=== PATIENT | female | born 1995 | race Caucasian/White ===

== ENCOUNTER 2020-06-21 13:20 | Inpatient (IN) | payer BC ==
[2020-06-21 15:10] VITALS: BMI 37.8
[2020-06-21] MEDS ORDERED: KETOROLAC TROMETHAMINE 30 MG/1 ML VIAL ONE (15:42)
[2020-06-21] MEDS ORDERED: morphine SULFATE/PF 0.5 MG/ML (2cc Syringe - QUVA) ONE (15:42)
--- NOTE | 2020-06-21 15:44 | HP ---
Past Medical History - Primary Care Physician PCP:: Monica Gunter - Admission Chief Complaint: 24 yo @ 38 weeks breech presentation , oligohydramnios History of Present Illness: 24 yo @ 38 weeks breech presentation, oligohydramnios admitted for primary c/s History Source: Patient Limitations to Obtaining History: No Limitations - Past Medical History ...: 1 ...Para: 0 ...Term: 0 ...: 0 ...Spon : 0 ...Induced : 0 ...Living Children: 0 ...Multiple Gestation: 0 ...LMP: 09/30/19 ... Weeks Gestation by Dates: 37.5 ...EDC by Dates: 07/07/20 ...EDC by Sono: 07/04/20 - Past Surgical History Past Surgical History: Yes: None Hx Myomectomy: No Hx Transabdominal Cerclage: No - Smoking History Smoking history: Never smoked Have you smoked in the past 12 months: No - Alcohol/Substance Use Hx Alcohol Use: No History of Substance Use: reports: None - Social History Usual Living Arrangement: Yes: With Spouse ADL: Independent Home Medications - Allergies Allergies/Adverse Reactions: Allergies Allergy/AdvReac Type Severity Reaction Status Date / Time No Known Allergies Allergy Verified 06/21/20 16:43 - Home Medications Home Medications: Ambulatory Orders Vits96/Iron Fum/Folic [ Tablet] 1 each PO 06/21/20 Family Medical History Family History: Denies, Unremarkable (Cancer - stomach (aunt); GF - lungs) Review of Systems - Review of Systems Constitutional: reports: No Symptoms Eyes: reports: No Symptoms HENT: reports: No Symptoms Neck: reports: No Symptoms Cardiovascular: reports: No Symptoms Respiratory: reports: No Symptoms Gastrointestinal: reports: No Symptoms Genitourinary: reports: No Symptoms Breasts: reports: No Symptoms Reported Musculoskeletal: reports: No Symptoms Integumentary: reports: No Symptoms Neurological: reports: No Symptoms Endocrine: reports: No Symptoms Hematology/Lymphatic: reports: No Symptoms Psychiatric: reports: No Symptoms Physical Exam - Maternity Vital Signs: Vital Signs Temperature 98.8 F 06/21/20 14:56 Pulse Rate 94 H 06/21/20 14:56 Respiratory Rate 20 06/21/20 14:56 Blood Pressure 111/64 06/21/20 14:56 O2 Sat by Pulse Oximetry (%) Constitutional: Yes: Well Nourished, No Distress Eyes: Yes: WNL HENT: Yes: WNL Neck: Yes: WNL Cardiovascular: Yes: WNL Lungs: Clear to auscultation Breast(s): Yes: WNL - Abdominal Exam/OB Number of Fetuses: Single Presentation: Breech Contractions: No Regularity: Irritability Intensity: Unaware Monitor Mode: External Heart Rate Location: [facility] Category: I Accelerations: Uniform Decelerations: None - Vaginal Exam/OB Vaginal Bleeding: No Dilatation (cm): closed Effacement (%): 20 Amniotic Membrane Status: Intact Presentation: Migel Breech Station: -1 - Physical Exam Musculoskeletal: Yes: WNL Extremities: Yes: WNL Edema: Yes Edema: LLE: 1+, RLE: 1+ Integumentary: Yes: WNL Deep Tendon Reflex Grade: Normal +2 Hemorrhage Risk Assessment - Risk Factors Medium Risk Factors: Yes: Obesity (BMI >40) Risk Score: 2 Risk Level: High Risk Problem List - Problems (1) Breech presentation Code(s): O32.1XX0 - MATERNAL CARE FOR BREECH PRESENTATION, UNSP (2) Oligohydramnios antepartum Code(s): O41.00X0 - OLIGOHYDRAMNIOS, UNSP TRIMESTER, NOT APPLICABLE OR UNSP (3) 38 weeks gestation of Code(s): Z3A.38 - 38 WEEKS GESTATION OF Assessment/Plan Admit to LD Cesarian delivery
[2020-06-21] MEDS ORDERED: ELECTROLYTE-148 SOLN 1,000 ML IV SCH (15:45)
[2020-06-21] MEDS ORDERED: morphine SULFATE/PF 0.5 MG/ML (2cc Syringe - QUVA) EP ONE (15:53)
[2020-06-21] MEDS ORDERED: ONDANSETRON 4 MG/2 ML VIAL IVPUSH PRN (15:53)
[2020-06-21] MEDS ORDERED: OXYTOCIN 20 UNITS in 0.9% NS 20 UNIT/1,000 ML INFUS.BAG IV ONE (15:59)
[2020-06-21] MEDS ORDERED: ceFAZolin SODIUM 1 GM VIAL ONE (16:19)
[2020-06-21] MEDS ORDERED: ePHEDrine SULFATE 50 MG/1 ML AMPULE ONE (16:23)
[2020-06-21] MEDS ORDERED: CITRIC ACID/SODIUM CITRATE 30 ML UNIT-DOSE CUP PO ONE (17:00)
[2020-06-21] MEDS ORDERED: SIMETHICONE 80 MG TAB.CHEW (FP) PO PRN (17:22)
[2020-06-21] MEDS ORDERED: IBUPROFEN 600 MG TABLET (FP) PO PRN ×2 (17:22→17:25)
[2020-06-21] MEDS ORDERED: METHYLERGONOVINE MALEATE 0.2 MG/1 ML AMP IM PRN (17:22)
[2020-06-21] MEDS ORDERED: ACETAMINOPHEN 325 MG TABLET (FP) PO PRN (17:26)
[2020-06-21] MEDS ORDERED: MAGNESIUM HYDROX 2400MG/30ML ORAL SUSPENSION 30 ML CUP PO PRN (17:32)
[2020-06-21] MEDS ORDERED: oxyCODONE HCL 5 MG TABLET PO PRN (17:33)
--- NOTE | 2020-06-21 17:40 | OP ---
Operative Note - Note: Operative Date: 06/21/20 Pre-Operative Diagnosis: 24 yo @ 38 + weeks Breech presentation Oligohydramnios. Obesity Operation: Primary LTCS via Pfnennstiel Incision Findings: Baby boy born as breech - tadeo 9/9 Delayed cord clamp Cord gases and blood collected Placenta and membranes complete Post-Operative Diagnosis: Same as Pre-op Surgeon: Monica Gunter [employer] Bus Driver: Austin Bolivar Anesthesiologist/PLANT UTILITY PERSON: King Pandey Anesthesia: Spinal Estimated Blood Loss (mls): 800 Fluid Volume Replaced (mls): 2,000 Operative Report Dictated: No
[2020-06-21] MEDS ORDERED: OXYTOCIN 30 UNITS in 0.9% NS 30 UNIT/500 ML INFUS.BAG IVPB SCH (17:45)
[2020-06-21 17:49] LABS: CORD BASE EXCESS -4.8 mmol/L (0-2); CORD HCO3 21.2 mmHg (20-29); CORD PCO2 42.5 mmHg (30-78); CORD pH 7.316 (7.14-7.44)
[2020-06-21] MEDS ORDERED: OXYTOCIN 20 UNITS in 0.9% NS 20 UNIT/1,000 ML INFUS.BAG IV SCH (18:15)
[2020-06-22] MEDS ORDERED: ACETAMINOPHEN 1000 MG/100 ML VIAL (NON FORMULARY) IVPB PRN (08:00)
[2020-06-22 08:10] LABS: BASO % 0.1 % (0-2.0); HEMATOCRIT 33.6 % (32.4-45.2); HEMOGLOBIN 11.1 GM/dL (10.7-15.3); LYMPH % 17.8 % (8-40); MCH 28.1 pg (25.7-33.7); MEAN CELL VOLUME 85.1 fl (80-96); MEAN PLT VOLUME 8.1 fl (7.5-11.1); MONO % 7.3 % (3.8-10.2); NEUT % 73.8 % (42.8-82.8); PLATELET COUNT 151 K/MM3 (134-434); RBC 3.95 M/mm3 (3.60-5.2); RDW 13.9 % (11.6-15.6); WHITE BLOOD COUNT 8.6 K/mm3 (4.0-10.0)
[2020-06-22] MEDS: ENOXAPARIN NA (PORCINE) 40 MG/0.4 ML DISP.SYRIN SQ SCH (10:32)
--- NOTE | 2020-06-22 15:18 | PN ---
Post Progress Note Post Day: 1 Type of Delivery: Primary C/S Vital Signs: Vital Signs Temperature 97.8 F 06/22/20 10:00 Pulse Rate 85 06/22/20 10:00 Respiratory Rate 20 06/22/20 14:00 Blood Pressure 114/68 06/22/20 10:00 O2 Sat by Pulse Oximetry (%) 100 06/22/20 10:00 Breast Exam: Yes: Soft Uterus: Yes: Fundus Firm, Fundus below umbilicus Incision: Yes: Dressing dry and intact Abdomen/GI: Yes: Abdomen soft, Tender Lochia: Yes: Rubra Lochia, amount: Small Activity: Ambulating - Labs Labs: CBC WBC 8.6 K/mm3 (4.0-10.0) 06/22/20 07:10 RBC 3.95 M/mm3 (3.60-5.2) 06/22/20 07:10 Hgb 11.1 GM/dL (10.7-15.3) 06/22/20 07:10 Hct 33.6 % (32.4-45.2) 06/22/20 07:10 MCV 85.1 fl (80-96) 06/22/20 07:10 MCH 28.1 pg (25.7-33.7) 06/22/20 07:10 MCHC 33.0 g/dl (32.0-36.0) 06/22/20 07:10 RDW 13.9 % (11.6-15.6) 06/22/20 07:10 Plt Count 151 K/MM3 (134-434) D 06/22/20 07:10 MPV 8.1 fl (7.5-11.1) 06/22/20 07:10 Absolute Neuts (auto) 6.3 K/mm3 (1.5-8.0) 06/22/20 07:10 Neutrophils % 73.8 % (42.8-82.8) 06/22/20 07:10 Lymphocytes % 17.8 % (8-40) D 06/22/20 07:10 Monocytes % 7.3 % (3.8-10.2) 06/22/20 07:10 Eosinophils % 1.0 % (0-4.5) 06/22/20 07:10 Basophils % 0.1 % (0-2.0) 06/22/20 07:10 Nucleated RBC % 0 % (0-0) 06/22/20 07:10 Problem List - Problems (1) Breech presentation Code(s): O32.1XX0 - MATERNAL CARE FOR BREECH PRESENTATION, UNSP (2) Oligohydramnios antepartum Code(s): O41.00X0 - OLIGOHYDRAMNIOS, UNSP TRIMESTER, NOT APPLICABLE OR UNSP (3) 38 weeks gestation of Code(s): Z3A.38 - 38 WEEKS GESTATION OF Assessment/Plan Ambulate Breasfeeding
[2020-06-22] MEDS ORDERED: BISACODYL 10 MG SUPP.RECT RC PRN (17:22)
--- NOTE | 2020-06-23 08:57 | PN ---
Post Progress Note - Subjective Subjective: Feels better, happy Type of Delivery: Primary C/S Vital Signs: Vital Signs Temperature 97.3 F L 06/22/20 21:54 Pulse Rate 83 06/22/20 21:54 Respiratory Rate 20 06/22/20 21:54 Blood Pressure 92/56 L 06/22/20 21:54 O2 Sat by Pulse Oximetry (%) 99 06/22/20 14:00 Breast Exam: Yes: Soft Uterus: Yes: Fundus Firm, Fundus below umbilicus Incision: Yes: Dressing dry and intact Abdomen/GI: Yes: Abdomen soft, Tender Lochia: Yes: Rubra Lochia, amount: Small Extremities: Yes: Edema Activity: Ambulating - Labs Labs: CBC WBC 8.6 K/mm3 (4.0-10.0) 06/22/20 07:10 RBC 3.95 M/mm3 (3.60-5.2) 06/22/20 07:10 Hgb 11.1 GM/dL (10.7-15.3) 06/22/20 07:10 Hct 33.6 % (32.4-45.2) 06/22/20 07:10 MCV 85.1 fl (80-96) 06/22/20 07:10 MCH 28.1 pg (25.7-33.7) 06/22/20 07:10 MCHC 33.0 g/dl (32.0-36.0) 06/22/20 07:10 RDW 13.9 % (11.6-15.6) 06/22/20 07:10 Plt Count 151 K/MM3 (134-434) D 06/22/20 07:10 MPV 8.1 fl (7.5-11.1) 06/22/20 07:10 Absolute Neuts (auto) 6.3 K/mm3 (1.5-8.0) 06/22/20 07:10 Neutrophils % 73.8 % (42.8-82.8) 06/22/20 07:10 Lymphocytes % 17.8 % (8-40) D 06/22/20 07:10 Monocytes % 7.3 % (3.8-10.2) 06/22/20 07:10 Eosinophils % 1.0 % (0-4.5) 06/22/20 07:10 Basophils % 0.1 % (0-2.0) 06/22/20 07:10 Nucleated RBC % 0 % (0-0) 06/22/20 07:10 Problem List - Problems (1) Breech presentation Code(s): O32.1XX0 - MATERNAL CARE FOR BREECH PRESENTATION, UNSP (2) Oligohydramnios antepartum Code(s): O41.00X0 - OLIGOHYDRAMNIOS, UNSP TRIMESTER, NOT APPLICABLE OR UNSP (3) 38 weeks gestation of Code(s): Z3A.38 - 38 WEEKS GESTATION OF Assessment/Plan Ambulate Dulcolax supp Milk of magnesia May go home tonight I will reevaluate for BM
[2020-06-23 10:13] VITALS: BP 127/88; PULSE 98; TEMP 97.4
[2020-06-23] MEDS: ENOXAPARIN NA (PORCINE) 40 MG/0.4 ML DISP.SYRIN SQ SCH (10:14)
--- NOTE | 2020-06-23 14:08 | DS ---
Physical Exam-BUFFING MACHINE TENDER Vital Signs: Vital Signs Temperature 97.4 F L 06/23/20 10:00 Pulse Rate 98 H 06/23/20 10:00 Respiratory Rate 20 06/23/20 10:00 Blood Pressure 127/88 06/23/20 10:00 O2 Sat by Pulse Oximetry (%) 99 06/22/20 14:00 Constitutional: Yes: Well Nourished, No Distress Eyes: Yes: WNL, Conjunctiva Clear, EOM Intact HENT: Yes: WNL Neck: Yes: WNL Cardiovascular: Yes: WNL Respiratory: Yes: WNL Gastrointestinal: Yes: WNL Renal/: Yes: WNL ....Post : Yes: Uterus firm, Slight lochia rubra Breast(s): Yes: WNL Musculoskeletal: Yes: WNL Extremities: Yes: WNL Edema: LLE: 1+, RLE: 1+ Integumentary: Yes: WNL Wound/Incision: Yes: Clean/Dry, Sutures Intact Neurological: Yes: WNL ...Motor Strength: WNL Psychiatric: Yes: WNL Labs: CBC, BMP 06/22/20 07:10 Delivery - Delivery Vaginal Delivery: Breech Section: Primary Type of Anesthesia: Spinal Episiotomy/Laceration: None EBL (cc): 800 Delivery, Single - Stages of Labor Date of Delivery: 06/21/20 Time of Delivery: 16:32 Time Placenta Delivered: 16:34 Placenta: Yes: Spontaneous - Condition of Infant Dairy Tester/Master Lay Out Specialist Present: Yes Name: Evelyn Sandra Infant Gender: Male Weight: 3.26 kg Total Hours ROM (Hrs/Mins): 3 - 1 Minute Total Score: 9 5 Minutes Total Score: 9 - Feeding Plan Initial Plan: Elected not to breastfeed exclusively throughout hospitalization Discharge Summary Problems reviewed: Yes Reason For Visit: Current Active Problems 38 weeks gestation of (Acute) Breech presentation (Acute) Oligohydramnios antepartum (Acute) Procedures: Principal: LTCS Hospital Course: uneventful Plan of Treatment: May go home today Regular diet Ambulate Encourage Condition: Good - Instructions Diet, Activity, Other Instructions: return to office in 1 week for incision check. call for appointment. Referrals: Monica Gunter MD [Staff Physician] - Disposition: HOME - Home Medications Comprehensive Discharge Medication List: Ambulatory Orders Vits96/Iron Fum/Folic [ Tablet] 1 each PO 06/21/20
--- NOTE | 2020-06-27 17:13 | PATH ---
Surgical Pathology Report Patient Name: DORENE MAYBERRY Med. Rec. #: [id number] /Age/Gender: 1995 (Age: 24) / F Account: [id number] Location: [facility] OBS/ADULT PAROLE OFFICER Taken: 06/21/2020 Received: 06/22/2020 Reported: 06/27/2020 Physicians: Monica Gunter M.D. Specimen(s) Received PLACENTA Clinical History at 38.1 weeks Primary Final Diagnosis PLACENTA, SECTION: 499 G THIRD TRIMESTER PLACENTA WITH TRIVASCULAR UMBILICAL CORD AND UNREMARKABLE PLACENTAL MEMBRANES. Electronically Signed Agnieszka Torres M.D. Gross Description The specimen is received fresh labeled placenta and is a 499 gram, 20.0 x 16.5 x 2.7 cm. placenta with attached membranes and umbilical cord. The attached membranes are de la rosa, translucent with focal opacities and insert marginally. The umbilical cord measures 9 cm. in length and averages 1.4 cm. in diameter. The cord inserts centrally. No true knots or strictures are identified. Cut surface of the umbilical cord reveals 3 vessels. The surface is leiva-blue with minimal fibrin deposition and appropriate caliber vessels. The maternal surface is red-brown with focal defects. Sectioning reveals red-brown, spongy parenchyma. No lesions are identified. Zig Zag Spring Machine Operator sections are submitted in three cassettes as follows: 1- membrane rolls and umbilical cord; 2-3- full thickness sections of placenta. /06/24/2020 saudi/06/24/2020
--- NOTE | 2020-06-28 12:29 | OP ---
DATE OF OPERATION: 06/21/2020 PREOPERATIVE DIAGNOSIS: [id number]-akvi-old G1, para 0 at 38-plus weeks, breech presentation, oligohydramnios, obesity. SURGERY: Primary low transverse section via Pfannenstiel incision. SURGEON: Laura Roberts MD STATE ASSESSED PROPERTIES DIRECTOR: OLIVER Millard ANESTHESIA: King Pandey MD, spinal. ESTIMATED BLOOD LOSS: 800 mL. FLUIDS: Lactated Ringer's, 2000 mL. URINE OUTPUT: Clear urine, 100 mL, at the end of the procedure. SPECIMEN: Placenta and membrane. INDICATION: [id number]-[id number]-old G1, para 0, at 38-plus weeks, breech presentation, oligohydramnios. DESCRIPTION OF PROCEDURE: The patient was taken to the operating room where spinal anesthesia was administered without complication. She was then prepped and draped in the usual sterile fashion in dorsal supine position with a leftward tilt. A Pfannenstiel skin incision was made with the scalpel and carried through to the underlying layer of fascia with the Bovie. The fascia was incised in the midline and the incision extended laterally with Justice scissors. The superior and inferior aspect of fascial incision was then grasped with Maurisio clamps, elevated, the underlying rectus muscles dissected off bluntly. Attention was then turned to the rectus muscles, which were then in the midline. Peritoneum identified, grasped with pickups and entered sharply with Metzenbaum scissors. The peritoneal incision was then extended superiorly and inferiorly with good visualization of the bladder. The bladder blade was then inserted and the vesicouterine peritoneum identified, grasped with pickups and entered sharply with Metzenbaum scissors. This incision was extended laterally and the bladder flap created digitally. The bladder blade was then reinserted, the lower uterine segment incised in transverse fashion with a scalpel. The uterine incision was extended laterally with bandage scissors. The bladder blade was removed and the infant delivered as breech atraumatically. The nose and mouth were suctioned and the cord clamped and cut. The infant was handed off to the waiting lever operator. Cord gases and blood were collected. Placenta was then removed manually, the uterus exteriorized and cleared of all clots and debris. Uterine incision was repaired with 1-0 chromic in a running locked fashion. Second layer of the same suture was used to obtain excellent hemostasis. Bladder flap was repaired with 2-0 chromic in a running stitch and the uterus returned to the abdomen. The gutters were cleared of all clots and the peritoneum closed with 2-0 chromic. Fascia was reapproximated with 0 Vicryl in a running fashion, and the skin was closed with 4-0 Vicryl in subcuticular fashion. The patient tolerated the procedure well. Sponge, lap, needle counts were correct x2. The patient was taken to recovery room in stable condition. LAURA ROBERTS MD RP/[id number]
== END 2020-06-23 17:30 | disposition home or self-care (01) | DRG 788 ==
LOC: EDBD → JLDR 13:20 → J3W 21:17
PROVIDERS: ADMIT Obstetrics & Gynecology; ATTEND Obstetrics & Gynecology
PROC: 10D00Z1 Extraction of Products of Conception, Low, Open Approach (ICD-10-PCS; principal; 2020-06-21)
DX: O41.03X0 Oligohydramnios, third trimester, not applicable or unspecified (principal); O32.1XX0 Maternal care for breech presentation, not applicable or unspecified; O99.214 Obesity complicating childbirth; Z3A.38 38 weeks gestation of pregnancy; Z37.0 Single live birth
CPT/HCPCS: 36415; 36600; 82803; 85025; 88307-TC; 94010